=== PATIENT | female | born 2000 | race Caucasian/White ===

== ENCOUNTER 2021-11-13 08:13 | Observation (INO) ==
[2021-11-13] MEDS ORDERED: diphenhydrAMINE 50 MG/ML VIAL IV STA (08:38)
[2021-11-13] MEDS ORDERED: methylPREDNISolone 125 MG/2 ML VIAL IV STA (08:38)
[2021-11-13] MEDS ORDERED: SODIUM CHLORIDE 0.9% 1000ML 1,000 ML IV SCH (08:45)
[2021-11-13 09:32] LABS: Hematocrit (blood only) 40.1 % (37-47); Hemoglobin 14.1 g/dL (12.0-16.0); Mean Corpuscular Hemoglobin 29.4 pg (25-34); Mean Corpuscular Hgb Conc 35.2 g/dL (32-36); Mean Corpuscular Volume 83.5 fL (80-100); Platelet Count 246 K/uL (130-400); RDW Coefficient of Variation 12.1 % (11.5-14.5); RDW Standard Deviation 36.6 fL (36.4-46.3); White Blood Count 17.51 K/uL (4.8-10.8)
--- NOTE | 2021-11-13 09:41 | XRay Report ---
XR chest 1V portable HISTORY: 21 years-old Female atypical rash COMPARISON: None TECHNIQUE: Portable AP view of the chest FINDINGS: The cardiomediastinal and hilar silhouettes are within normal limits. No pneumothorax, pleural effusi on, airspace consolidation or overt pulmonary edema. The bones of the chest appear grossly intact. IMPRESSION: No acute process. ACT 112: Negative or not required by law. The above report was generated using voice recognition software. It may contain grammatical, syntax o r spelling errors. Electronically signed by: Uriah Floyd M.D. 11/13/2021 9:39 AM
[2021-11-13 09:44] LABS: Partial Thromboplastin Ratio 1.1; Partial Thromboplastin Time 29.8 Seconds (21.0-31.0); Prothrombin Time 10.3 Seconds (9.0-12.0)
[2021-11-13 09:52] LABS: Albumin Level 3.2 gm/dl (3.4-5.0); BUN Creatinine Ratio 12.3 (10-20); Calcium 8.5 mg/dl (8.5-10.1); Creatinine Clr Calc Pharmacy 109.2 ml/min; Eosinophils # (auto) 0.01 K/uL (0-0.5); Eosinophils % (auto) 0.1 %; Immature Granulocytes # (auto) 0.04 K/uL (0.00-0.02); Immature Granulocytes % (auto) 0.2 %; Lymphocytes # (auto) 0.57 K/uL (1.2-3.4); Lymphocytes % (auto) 3.3 %; Monocytes # (auto) 0.18 K/uL (0.11-0.59); Neutrophils # (auto) 16.71 K/uL (1.4-6.5); Neutrophils % (auto) 95.4 %; Potassium 3.2 mmol/L (3.5-5.1)
[2021-11-13 09:53] LABS: Pregnancy Test, Serum Negative (Negative)
[2021-11-13 09:55] LABS: Albumin Globulin Ratio 0.8 (0.9-2); Bilirubin,Total 0.5 mg/dl (0.2-1); Globulin 4.1 gm/dl (2.5-4.0); Total Protein 7.3 gm/dl (6.4-8.2)
--- NOTE | 2021-11-13 10:01 | Emergency Department Note ---
History of Present Illness General Chief complaint: Rash Stated complaint: RASH,SWELLING Time Seen by Provider: 11/13/21 08:32 History of Present Illness Maximum Pain Intensity: 4 This is a 21-year-old [facility] female presenting to the emergency department for evaluation of rash and swelling over the past few days. The patient does not have any childhood or adult immunizations. She does not believe that she has had a fever. Her rash includes the face, trunk, abdomen, and palms of the hands but not the soles of the feet. She is around young children, however none of them have been ill. The patient did go to Dr [facility] yesterday where she was given a dose of Solu-Medrol and oral steroids. The patient states her symptoms are worse today, primarily around her eyes and of her face. She does not take medication on a regular basis and considers herself usually healt hy. She does not believe that she is . Her discomfort is rated a 4/10 and she does not identify aggravating or alleviating factors. No known exposures to allergens that would explain her symptoms. Home Medications Medication Instructions Recorded Confirmed Type No Known Home Medications 11/13/21 11/13/21 History Allergies Allergy/AdvReac Type Severity Reaction Status Date / Time No Known Allergies Allergy Unverified 11/13/21 11:01 Past Med/Surg History Medical History No chronic diseases present Surgical History No significant past surgical history Social History Smoking Status: Never smoker Preferred Language: Kosovan Feels Safe at Home: Yes Review of Systems A total of 10 systems reviewed and were otherwise negative Physical Exam Vital Signs Vital Signs - 24 hr 11/13/21 08:28 11/13/21 09:33 11/13/21 09:40 Temperature 37.5 C Temperature Source Oral Pulse Rate 130 H 107 H 107 H Pulse Rate from SpO2 Sensor 107 H 108 H Pulse Rhythm Regular Pulse Strength Normal Respiratory Rate 20 15 18 Respiratory Effort / Characteristics Non-Labored Spontaneous Respiratory Depth Normal Respiratory Pattern Regular Blood Pressure 125/78 Blood Pressure Mean 93 Blood Pressure Position Sitting Pulse Oximetry 96 99 100 Oxygen Delivery Method Room Air Sepsis Recent Fever Within 48 Hours No Sepsis New/Unexplained Change in Mental Status No Sepsis Action Taken by Nursing No Action Required 11/13/21 09:50 11/13/21 10:01 11/13/21 10:02 Temperature Temperature Source Pulse Rate 102 H 100 H 110 H Pulse Rate from SpO2 Sensor 103 H 102 H 114 H Pulse Rhythm Pulse Strength Respiratory Rate 21 17 Respiratory Effort / Characteristics Respiratory Depth Respiratory Pattern Blood Pressure 117/69 Blood Pressure Mean 85 Blood Pressure Position Pulse Oximetry 99 100 98 Oxygen Delivery Method Sepsis Recent Fever Within 48 Hours Sepsis New/Unexplained Change in Mental Status Sepsis Action Taken by Nursing 11/13/21 10:10 11/13/21 10:20 11/13/21 10:30 Temperature Temperature Source Pulse Rate 103 H 113 H 107 H Pulse Rate from SpO2 Sensor 103 H 112 H 107 H Pulse Rhythm Pulse Strength Respiratory Rate 19 14 21 Respiratory Effort / Characteristics Respiratory Depth Respiratory Pattern Blood Pressure 116/62 Blood Pressure Mean 80 Blood Pressure Position Pulse Oximetry 97 98 96 Oxygen Delivery Method Sepsis Recent Fever Within 48 Hours Sepsis New/Unexplained Change in Mental Status Sepsis Action Taken by Nursing 11/13/21 10:40 11/13/21 10:50 11/13/21 11:00 Temperature Temperature Source Pulse Rate 109 H 112 H 112 H Pulse Rate from SpO2 Sensor 110 H 111 H 112 H Pulse Rhythm Pulse Strength Respiratory Rate 13 25 H 22 Respiratory Effort / Characteristics Respiratory Depth Respiratory Pattern Blood Pressure Blood Pressure Mean Blood Pressure Position Pulse Oximetry 96 95 96 Oxygen Delivery Method Sepsis Recent Fever Within 48 Hours Sepsis New/Unexplained Change in Mental Status Sepsis Action Taken by Nursing 11/13/21 11:10 11/13/21 11:20 11/13/21 11:30 Temperature Temperature Source Pulse Rate 98 H 108 H 105 H Pulse Rate from SpO2 Sensor 102 H 108 H 108 H Pulse Rhythm Pulse Strength Respiratory Rate 18 21 22 Respiratory Effort / Characteristics Respiratory Depth Respiratory Pattern Blood Pressure 124/72 Blood Pressure Mean 89 Blood Pressure Position Pulse Oximetry 96 95 98 Oxygen Delivery Method Sepsis Recent Fever Within 48 Hours Sepsis New/Unexplained Change in Mental Status Sepsis Action Taken by Nursing 11/13/21 11:40 11/13/21 11:50 11/13/21 12:00 Temperature Temperature Source Pulse Rate 115 H 114 H 112 H Pulse Rate from SpO2 Sensor 113 H 114 H 111 H Pulse Rhythm Pulse Strength Respiratory Rate 19 22 17 Respiratory Effort / Characteristics Respiratory Depth Respiratory Pattern Blood Pressure Blood Pressure Mean Blood Pressure Position Pulse Oximetry 97 97 97 Oxygen Delivery Method Sepsis Recent Fever Within 48 Hours Sepsis New/Unexplained Change in Mental Status Sepsis Action Taken by Nursing 11/13/21 12:10 11/13/21 12:20 11/13/21 12:30 Temperature Temperature Source Pulse Rate 100 H 110 H 107 H Pulse Rate from SpO2 Sensor 101 H 109 H 105 H Pulse Rhythm Pulse Strength Respiratory Rate 16 20 19 Respiratory Effort / Characteristics Respiratory Depth Respiratory Pattern Blood Pressure 119/68 Blood Pressure Mean 85 Blood Pressure Position Pulse Oximetry 96 95 97 Oxygen Delivery Method Sepsis Recent Fever Within 48 Hours Sepsis New/Unexplained Change in Mental Status Sepsis Action Taken by Nursing 11/13/21 12:40 11/13/21 12:50 11/13/21 13:00 Temperature Temperature Source Pulse Rate 104 H 107 H 97 H Pulse Rate from SpO2 Sensor 106 H 104 H 95 H Pulse Rhythm Pulse Strength Respiratory Rate 18 14 16 Respiratory Effort / Characteristics Respiratory Depth Respiratory Pattern Blood Pressure 106/68 Blood Pressure Mean 80 Blood Pressure Position Pulse Oximetry 96 97 98 Oxygen Delivery Method Sepsis Recent Fever Within 48 Hours Sepsis New/Unexplained Change in Mental Status Sepsis Action Taken by Nursing 11/13/21 13:10 11/13/21 13:20 Temperature Temperature Source Pulse Rate 105 H 110 H Pulse Rate from SpO2 Sensor 108 H 115 H Pulse Rhythm Pulse Strength Respiratory Rate 20 16 Respiratory Effort / Characteristics Respiratory Depth Respiratory Pattern Blood Pressure Blood Pressure Mean Blood Pressure Position Pulse Oximetry 97 97 Oxygen Delivery Method Sepsis Recent Fever Within 48 Hours Sepsis New/Unexplained Change in Mental Status Sepsis Action Taken by Nursing VITALS: Vitals are noted on the nurse's note and reviewed by myself. Vital signs stable. GENERAL: Well-developed, well-nourished, white female, who appears moderately uncomfortable on presentation. She is with diffuse rash. HEAD: Normocephalic atraumatic. MOUTH: Mucous membranes moist. Tonsils are not enlarged. Pharynx without erythema, blood, or exudate. Uvula midline. Airway patent. No distinct [place] spots or ulcerations. There may be some slight discoloration of the left side tongue. No distinct tenderness in the salivary gland region. NECK: Supple without nuchal rigidity. No lymphadenopathy. No thyromegaly. Cervical spine is nontender. HEART: Regular rate and rhythm without murmurs gallops or rubs. LUNGS: Clear to auscultation bilaterally without wheezes, rales or rhonchi. No retractions or accessory muscle use. ABDOMEN: Positive normal bowel sounds x 4. Soft, nontender, without masses or organomegaly. No guarding or rebound tenderness. MUSCULOSKELETAL: No muscle atrophy, erythema, or edema noted. Full range of motion in all extremities. No tenderness to palpation. Normal gait. Strength 5/5 throughout. NEURO: Patient was alert and oriented to person place and time. CN II through XII grossly intact. No focal neurological deficits. Deep tendon reflexes 2+ throughout. SKIN: The skin was with diffuse rash. The rash is with several different morphologies, some of which are annular with central clearing, some of which are more persistent and diffuse erythema. No distinct pustules or ulcerations. Palms of the hands are affected. There is swelling of the periorbital areas without distinct conjunctivitis. Course Administered Medications Discontinued Medications Diphenhydramine HCl (Diphenhydramine 50 Mg/Ml Vial) 50 mg IV NOW STA Stop: 11/13/21 08:39 Last Admin: 11/13/21 09:20 Dose: 50 mg Documented by: [id number] Sodium Chloride (Nss 1000ml) 1,000 mls @ 999 mls/hr IV .Q1H1M LATESHA Stop: 11/13/21 09:45 Last Infusion: 11/13/21 13:14 Dose: 0 mls/hr Documented by: [id number] Admin: 11/13/21 09:20 Dose: 999 mls/hr Documented by: [id number] Ceftriaxone Sodium (Rocephin) 2,000 mg in 70 mls @ 140 mls/hr IV NOW STA Stop: 11/13/21 11:05 Last Infusion: 11/13/21 13:14 Dose: 0 mls/hr Documented by: [id number] Admin: 11/13/21 10:57 Dose: 140 mls/hr Documented by: [id number] Methylprednisolone (Methylprednisolone 125 Mg/2 Ml Vial) 125 mg IV NOW STA Stop: 11/13/21 08:39 Last Admin: 11/13/21 09:20 Dose: 125 mg Documented by: [id number] Oseltamivir Phosphate (Oseltamivir Phosphate 75 Mg Cap) 75 mg PO NOW STA; P rotocol Stop: 11/13/21 13:22 Last Admin: 11/13/21 13:45 Dose: 75 mg Documented by: [id number] Medical Decision Making Differential Diagnosis Differential diagnosis: Etiologies such as allergic reaction, anaphylaxis, urticaria, angioedema, Juarez-Juan syndrome, toxic epidermal necrolysis, erythema multiforme, cellulitis, as well as others were entertained. Laboratory Data Result diagrams: 11/13/21 09:15 11/13/21 09:15 Lab Results 11/13/21 11/13/21 11/13/21 Range/Units 09:15 09:15 09:15 WBC 17.51 H (4.8-10.8) K/uL RBC 4.80 (4.2-5.4) M/uL Hgb 14.1 (12.0-16.0) g/dL Hct 40.1 (37-47) % MCV 83.5 (80-100) fL MCH 29.4 (25-34) pg MCHC 35.2 (32-36) g/dL RDW Std Deviation 36.6 (36.4-46.3) fL RDW Coeff of Nguyễn 12.1 (11.5-14.5) % Plt Count 246 (130-400) K/uL MPV 10.0 (7.4-10.4) fL Immature Gran % (Auto) 0.2 % Neut % (Auto) 95.4 % Lymph % (Auto) 3.3 % Nelson % (Auto) 1.0 % Eos % (Auto) 0.1 % Baso % (Auto) 0.0 % Neut # (Auto) 16.71 H (1.4-6.5) K/uL Lymph # (Auto) 0.57 L (1.2-3.4) K/uL Nelson # (Auto) 0.18 (0.11-0.59) K/uL Eos # (Auto) 0.01 (0-0.5) K/uL Baso # (Auto) 0.00 (0-0.2) K/uL Immature Gran # (Auto) 0.04 H (0.00-0.02) K/uL ESR (0-20) mm/hr PT (9.0-12.0) Seconds INR (0.9-1.1) APTT (21.0-31.0) Seconds PTT Ratio Sodium 134 L (136-145) mmol/L Potassium 3.2 L (3.5-5.1) mmol/L Chloride 104 (98-107) mmol/L Carbon Dioxide 25 (21-32) mmol/L Anion Gap 5.0 (3-11) BUN 10 (7-18) mg/dl Creatinine 0.79 (0.6-1.2) mg/dl Est Cr Clr Drug Dosing 109.2 ml/min Est GFR ( Amer) 124.0 ml/min Est GFR (Non-Af Amer) 107.0 ml/min BUN/Creatinine Ratio 12.3 (10-20) Glucose 160 H (70-99) mg/dl Lactate (0.4-2.0) mmol/L Calcium 8.5 (8.5-10.1) mg/dl Total Bilirubin 0.5 (0.2-1) mg/dl AST 22 (15-37) U/L ALT 51 (12-78) Alkaline Phosphatase 60 (45-117) U/L C-Reactive Protein 11.00 H (0-0.29) mg/dl Total Protein 7.3 (6.4-8.2) gm/dl Albumin 3.2 L (3.4-5.0) gm/dl Globulin 4.1 H (2.5-4.0) gm/dl Albumin/Globulin Ratio 0.8 L (0.9-2) Procalcitonin 0.18 (0-0.5) ng/ml HCG, Qual Negative (Negative) Adenovirus (PCR) (NotDetected) B. pertussis DNA (PCR) (NotDetected) B.parapertussis DNA PCR (NotDetected) Lyme Disease IgG Ab Negative (Negative) Lyme Disease IgM Ab Equivocal A (Negative) C. pneumoniae DNA (PCR) (NotDetected) Coronavirus OC43 (PCR) (NotDetected) Coronavirus HKU1 (PCR) (NotDetected) Coronavirus 229E (PCR) (NotDetected) SARS-CoV-2 (PCR) (NotDetected) Coronavirus NL63 (PCR) (NotDetected) Monoscreen Negative (Negative) Human Metapneumovir PCR (NotDetected) Influenza A (H3) PCR (NotDetected) Influenza Type B (PCR) (NotDetected) M. pneumoniae (PCR) (NotDetected) Parainfluenza 1 (PCR) (NotDetected) Parainfluenza 2 (PCR) (NotDetected) Parainfluenza 3 (PCR) (NotDetected) Parainfluenza 4 (PCR) (NotDetected) RSV (PCR) (NotDetected) Entero/Rhino (PCR) (NotDetected) 11/13/21 11/13/21 11/13/21 Range/Units 09:15 09:15 11:14 WBC (4.8-10.8) K/uL RBC (4.2-5.4) M/uL Hgb (12.0-16.0) g/dL Hct (37-47) % MCV (80-100) fL MCH (25-34) pg MCHC (32-36) g/dL RDW Std Deviation (36.4-46.3) fL RDW Coeff of Nguyễn (11.5-14.5) % Plt Count (130-400) K/uL MPV (7.4-10.4) fL Immature Gran % (Auto) % Neut % (Auto) % Lymph % (Auto) % Nelson % (Auto) % Eos % (Auto) % Baso % (Auto) % Neut # (Auto) (1.4-6.5) K/uL Lymph # (Auto) (1.2-3.4) K/uL Nelson # (Auto) (0.11-0.59) K/uL Eos # (Auto) (0-0.5) K/uL Baso # (Auto) (0-0.2) K/uL Immature Gran # (Auto) (0.00-0.02) K/uL ESR 17 (0-20) mm/hr PT 10.3 (9.0-12.0) Seconds INR 1.0 (0.9-1.1) APTT 29.8 (21.0-31.0) Seconds PTT Ratio 1.1 Sodium (136-145) mmol/L Potassium (3.5-5.1) mmol/L Chloride (98-107) mmol/L Carbon Dioxide (21-32) mmol/L Anion Gap (3-11) BUN (7-18) mg/dl Creatinine (0.6-1.2) mg/dl Est Cr Clr Drug Dosing ml/min Est GFR ( Amer) ml/min Est GFR (Non-Af Amer) ml/min BUN/Creatinine Ratio (10-20) Glucose (70-99) mg/dl Lactate 1.4 (0.4-2.0) mmol/L Calcium (8.5-10.1) mg/dl Total Bilirubin (0.2-1) mg/dl AST (15-37) U/L ALT (12-78) Alkaline Phosphatase (45-117) U/L C-Reactive Protein (0-0.29) mg/dl Total Protein (6.4-8.2) gm/dl Albumin (3.4-5.0) gm/dl Globulin (2.5-4.0) gm/dl Albumin/Globulin Ratio (0.9-2) Procalcitonin (0-0.5) ng/ml HCG, Qual (Negative) Adenovirus (PCR) (NotDetected) B. pertussis DNA (PCR) (NotDetected) B.parapertussis DNA PCR (NotDetected) Lyme Disease IgG Ab (Negative) Lyme Disease IgM Ab (Negative) C. pneumoniae DNA (PCR) (NotDetected) Coronavirus OC43 (PCR) (NotDetected) Coronavirus HKU1 (PCR) (NotDetected) Coronavirus 229E (PCR) (NotDetected) SARS-CoV-2 (PCR) (NotDetected) Coronavirus NL63 (PCR) (NotDetected) Monoscreen (Negative) Human Metapneumovir PCR (NotDetected) Influenza A (H3) PCR (NotDetected) Influenza Type B (PCR) (NotDetected) M. pneumoniae (PCR) (NotDetected) Parainfluenza 1 (PCR) (NotDetected) Parainfluenza 2 (PCR) (NotDetected) Parainfluenza 3 (PCR) (NotDetected) Parainfluenza 4 (PCR) (NotDetected) RSV (PCR) (NotDetected) Entero/Rhino (PCR) (NotDetected) 11/13/21 Range/Units 11:28 WBC (4.8-10.8) K/uL RBC (4.2-5.4) M/uL Hgb (12.0-16.0) g/dL Hct (37-47) % MCV (80-100) fL MCH (25-34) pg MCHC (32-36) g/dL RDW Std Deviation (36.4-46.3) fL RDW Coeff of Nguyễn (11.5-14.5) % Plt Count (130-400) K/uL MPV (7.4-10.4) fL Immature Gran % (Auto) % Neut % (Auto) % Lymph % (Auto) % Nelson % (Auto) % Eos % (Auto) % Baso % (Auto) % Neut # (Auto) (1.4-6.5) K/uL Lymph # (Auto) (1.2-3.4) K/uL Nelson # (Auto) (0.11-0.59) K/uL Eos # (Auto) (0-0.5) K/uL Baso # (Auto) (0-0.2) K/uL Immature Gran # (Auto) (0.00-0.02) K/uL ESR (0-20) mm/hr PT (9.0-12.0) Seconds INR (0.9-1.1) APTT (21.0-31.0) Seconds PTT Ratio Sodium (136-145) mmol/L Potassium (3.5-5.1) mmol/L Chloride (98-107) mmol/L Carbon Dioxide (21-32) mmol/L Anion Gap (3-11) BUN (7-18) mg/dl Creatinine (0.6-1.2) mg/dl Est Cr Clr Drug Dosing ml/min Est GFR ( Amer) ml/min Est GFR (Non-Af Amer) ml/min BUN/Creatinine Ratio (10-20) Glucose (70-99) mg/dl Lactate (0.4-2.0) mmol/L Calcium (8.5-10.1) mg/dl Total Bilirubin (0.2-1) mg/dl AST (15-37) U/L ALT (12-78) Alkaline Phosphatase (45-117) U/L C-Reactive Protein (0-0.29) mg/dl Total Protein (6.4-8.2) gm/dl Albumin (3.4-5.0) gm/dl Globulin (2.5-4.0) gm/dl Albumin/Globulin Ratio (0.9-2) Procalcitonin (0-0.5) ng/ml HCG, Qual (Negative) Adenovirus (PCR) Not Detected (NotDetected) B. pertussis DNA (PCR) Not Detected (NotDetected) B.parapertussis DNA PCR Not Detected (NotDetected) Lyme Disease IgG Ab (Negative) Lyme Disease IgM Ab (Negative) C. pneumoniae DNA (PCR) Not Detected (NotDetected) Coronavirus OC43 (PCR) Not Detected (NotDetected) Coronavirus HKU1 (PCR) Not Detected (NotDetected) Coronavirus 229E (PCR) Not Detected (NotDetected) SARS-CoV-2 (PCR) Not Detected (NotDetected) Coronavirus NL63 (PCR) Not Detected (NotDetected) Monoscreen (Negative) Human Metapneumovir PCR Not Detected (NotDetected) Influenza A (H3) PCR DETECTED A* (NotDetected) Influenza Type B (PCR) Not Detected (NotDetected) M. pneumoniae (PCR) Not Detected (NotDetected) Parainfluenza 1 (PCR) Not Detected (NotDetected) Parainfluenza 2 (PCR) Not Detected (NotDetected) Parainfluenza 3 (PCR) Not Detected (NotDetected) Parainfluenza 4 (PCR) Not Detected (NotDetected) RSV (PCR) Not Detected (NotDetected) Entero/Rhino (PCR) DETECTED A* (NotDetected) Imaging Data Radiologist's Impression: Chest X-Ray 11/13/21 08:59 XR chest 1V portable HISTORY: 21 years-old Female atypical rash COMPARISON: None TECHNIQUE: Portable AP view of the chest FINDINGS: The cardiomediastinal and hilar silhouettes are within normal limits. No pneumothorax, pleural effusion, airspace consolidation or overt pulmonary edema. The bones of the chest appear grossly intact. IMPRESSION: No acute process. ACT 112: Negative or not required by law. The above report was generated using voice recognition software. It may contain grammatical, syntax or spelling errors. Electronically signed by: Uriah Floyd M.D. 11/13/2021 9:[address] [facility] Narrative Physical exam and history were performed. Nursing notes, EMR, and Medication List were personally reviewed. Patient appears to have very atypical appearing rash throughout her body including the palms of the hands. She is afebrile here in the department but is with tachycardia. She is not immunized for any disease. IV access was established and labs were obtained. She was hydrated with normal saline and given IV Benadryl and IV Solu-Medrol. Because of her nonimmunization status extensive viral panels were ordered as well as blood cultures. An order was placed for continuous cardiac monitoring. The monitor shows a rate of 110 with sinus tachycardic rhythm. The patient's blood work is as above and was reviewed. She does have an elevated white blood cell count of 17.5. She does not have a significant anemia. Neutrophils are elevated at 16. Sed rate is normal at 17, however CRP is markedly elevated at 11.0. Transaminases are not diagnostic. She is not . Lyme testing was performed and is equivocal for IgM. Respiratory bio fire was performed and did return positive for both influenza A and rhinovirus. Covid is negative. Chest x-ray was reviewed by myself and radiology showing no acute process. Her lactic is normal and blood culture is pending. The case was discussed with my attending physician, Dr. Bettencourt, who also independently evaluated the patient. We did add additional measles, mumps, syphilis, and HIV testing. Many of these are send out labs, and the measles was completed on a downtime form in order to get a PCR test. The patient was reevaluated multiple times throughout the course of her stay. As her Lyme is equivocal she was given 2 g IV Rocephin. She was given Tamiflu for her influenza A. She did have improvement of the swelling and redness of the face after Benadryl and steroids, which I would estimate to be about 50% better. The remaining extremities and trunk are still quite involved however. She does not appear to be in anaphylaxis or with Harsh Juan's. She does not seem to have any evolving or changing elements of the rash. Overall she does not seem well for discharge home. The case was discussed with the on-call hospitalist team who agreed to evaluate her here in the ER. Please see their dictation for further patient course, plan, and disposition. The chart was completed utilizing [employer] Voice Recognition Software. Grammatical errors, random word insertions, pronoun errors, and incomplete sente nces are an occasional consequence of this system due to software limitations, ambient noise, and hardware issues. Any formal questions or concerns about the content, text, or information contained within the body of this dictation should be directly addressed to the provider for clarification. . Impression & Plan Rash and nonspecific skin eruption, Not immunized, Influenza A, Rhinovirus, Borderline Lyme serology Discharge Plan Visit Data Chief Complaint: Rash Stated Complaint: RASH,SWELLING ED Provider: Silver Bettencourt ED Midlevel Provider: Marcelo Valentin Discharge Problem: Rash and nonspecific skin eruption, Not immunized, Influenza A, Rhinovirus, Borderline Lyme serology Patient Disposition: Being Evaluated by Hospitalist Condition: Fair Forms Stand Alone Forms: My [employer] Prescriptions Prescriptions: No Action No Known Home Medications RF: 0 Referrals Referrals: PCP,NO [Primary Care Provider] -
[2021-11-13 10:02] LABS: Monotest Negative (Negative)
[2021-11-13 10:22] LABS: Lyme Ab IgG w/WB Rflx Negative (Negative)
[2021-11-13 10:33] LABS: Lyme Ab IgM w/WB Rflx Equivocal (Negative)
[2021-11-13] MEDS ORDERED: cefTRIAXone SODIUM 2,000 MG/70 ML BAG IV STA (10:36)
[2021-11-13 12:33] LABS: Adenovirus PCR Not Detected (NotDetected); Bordetella parapertussis PCR Not Detected (NotDetected); Bordetella pertussis PCR Not Detected (NotDetected); Chlamydia pneumoniae PCR Not Detected (NotDetected); Coronavirus 229E PCR Not Detected (NotDetected); Coronavirus CoV-2 (COVID19)PCR Not Detected (NotDetected); Coronavirus HKU1 PCR Not Detected (NotDetected); Coronavirus NL63 PCR Not Detected (NotDetected); Coronavirus OC43PCR Not Detected (NotDetected); Human Metapneumovirus PCR Not Detected (NotDetected); Influenza B PCR Not Detected (NotDetected); Mycoplasma pneumoniae PCR Not Detected (NotDetected); Parainfluenza Virus 1 PCR Not Detected (NotDetected); Parainfluenza Virus 2 PCR Not Detected (NotDetected); Parainfluenza Virus 3 PCR Not Detected (NotDetected); Parainfluenza Virus 4 PCR Not Detected (NotDetected); Respiratory Syncytial VirusPCR Not Detected (NotDetected)
[2021-11-13 13:01] LABS: Influenza A (H3) PCR DETECTED (NotDetected); Rhinovirus/Enterovirus PCR DETECTED (NotDetected)
[2021-11-13] MEDS ORDERED: OSELTAMIVIR PHOSPHATE 75 MG CAP PO STA (13:21)
--- NOTE | 2021-11-13 13:46 | Emergency Department Note ---
ED Visit Note The patient was seen and examined with nena. I agree with the history, physical and findings. Please see the note for disposition and details. .
--- NOTE | 2021-11-13 15:13 | History & Physical Report ---
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 Rash, joint pain, joint swelling Patient with diffuse pruritic maculopapular rash sparing the palms and soles, intermittently painful On admission, patient intermittently tachycardic, leukocytosis of 17.5 Symptoms improving after solumedrol administration, ceftriaxone given in ED CRP elevated to 11, ESR wnl, procal negative, LFT's wnl, INR wnl Differential broad but includes group A strep infection, viral exanthem, allergic reaction, other infections including measles given unvaccinated status Lyme IgM equivocal, other tickborne labs pending Additional pending labs: RPR, HIV, mumps, anti-streptolysin O Ab, measles Continue solumedrol 40mg IV q8h, diphenhydramine prn itching Trend CBC, CMP Airborne precautions Dysuria, urinary retention Ceftriaxone dose given in ED Urine culture pending, creatinine not elevated Patient without urinary retention at this time; continue to monitor Influenza A, echovirus Biofire on admission positive for influenza A and echovirus Tamiflu given in ED CXR unremarkable, maintaining adequate oxygenation on room air Unlikely related to presenting symptoms other than cough Continue to monitor Hypokalemia KCl 40mEq given Trend BMP FEN: regular diet Code status: full code DVT ppx: not indicated Held home meds: none Isolation: airborne PT/OT: not indicated Dispo: med/surg (2) Influenza A: (3) Rhinovirus: (4) Not immunized: History of Present Illness Primary Care Provider: NO PCP 21yo female without significant PMH presents with a two-day history of rash, cough, joint swelling, joint pain, and fatigue. Of note, patient is Confucianist and has never received a vaccine. Two days ago, patient noticed a red, itchy rash on her legs which spread to her entire body. Yesterday, the rash continued to worsen, and patient developed swelling of her hands, feet, and knees bilaterally, as well as burning pain in her hands and feet. Patient also notes some swelling of her lips yesterday, though this has resolved, and did not interfere with her breathing at that time. Yesterday, patient was seen at a local clinic, where she was given solumedrol and prednisone; patient's symptoms initially improved, but by midnight last night, patient's symptoms returned. This morning, patient's rash, pain, and fatigue worsened, prompting her to come to the hospital. Patient also notes a roughly three-month history of intermittent urinary retention and burning with urination. Patient notes she has never had this evaluated by a physician. Patient notes these symptoms have worsened slightly over the past week. Patient denies fever, chills, congestion, sore throat, chest pain, palpitations, SOB, abdominal pain, nausea, vomiting, constipation, diarrhea, numbness, tingling, or weakness. Patient denies sick contacts or recent travel. Patient says nobody in her family or community have had similar symptoms recently. Patient's family owns horses but patient does not come into direct contact with them. Patient denies exposure to any new foods, household product, or any other known new allergen. Patient denies exposure to other animals. Denies any known tick bite. Denies known allergies. Patient denies any family history of medical conditions. Patient denies alcohol, cannabis, and other recreational substance use. Patient denies any surgical history. Allergies Allergy/AdvReac Type Severity Reaction Status Date / Time No Known Allergies Allergy Unverified 11/13/21 11:01 Home Medications Medication Instructions Recorded Confirmed Type No Known Home Medications 11/13/21 11/13/21 History Past Med/Surg History Medical History No chronic diseases present Surgical History No significant past surgical history Social History Smoking Status: Never smoker Preferred Language: Amharic Feels Safe at Home: Yes Review of Systems Review of Systems: See HPI Physical Exam Physical Exam: Constitutional: well-appearing, no acute distress HEENT: no conjunctival injection, oropharynx unremarkable without erythema, exudate, or other lesions; dentition absent, upper and lower dentures noted CV: regular rhythm, no murmur appreciated, extremities well-perfused, no LE edema Resp: CTABL, no wheezes/rales/rhonchi appreciated, no increased work of breathing GI: soft, nondistended, nontender, BS normoactive MSK: no gross deformities appreciated Skin: diffuse maculopapular rash present on arms, legs, trunk, back, neck, face, and scalp (sparing palms and soles), edges of rash borders raised, areas of pallor between erythematous regions, rash does yessy, no exudate, ulcerations, or flaking skin noted Neuro: alert, oriented, no focal neurologic deficit appreciated Results & Data Results & Data ([facility]) Vital Signs (Past 12 Hours) Vital Signs Temp Pulse Resp BP Pulse Ox 11/13/21 13:20 110 H 16 97 11/13/21 13:10 105 H 20 97 11/13/21 13:00 97 H 16 106/68 98 11/13/21 12:50 107 H 14 97 11/13/21 12:40 104 H 18 96 11/13/21 12:30 107 H 19 119/68 97 11/13/21 12:20 110 H 20 95 11/13/21 12:10 100 H 16 96 11/13/21 12:00 112 H 17 97 11/13/21 11:50 114 H 22 97 11/13/21 11:40 115 H 19 97 11/13/21 11:30 105 H 22 124/72 98 11/13/21 11:20 108 H 21 95 11/13/21 11:10 98 H 18 96 11/13/21 11:00 112 H 22 96 11/13/21 10:50 112 H 25 H 95 11/13/21 10:40 109 H 13 96 11/13/21 10:30 107 H 21 116/62 96 11/13/21 10:20 113 H 14 98 11/13/21 10:10 103 H 19 97 11/13/21 10:02 110 H 17 117/69 98 11/13/21 10:01 100 H 100 11/13/21 09:50 102 H 21 99 11/13/21 09:40 107 H 18 100 11/13/21 09:33 107 H 15 99 11/13/21 08:28 37.5 C 130 H 20 125/78 96 Supervising Physician Co-Signing Physician Notes Attending attestation Pt seen and examined in concert with Dr. Marinelli. In agreement with the docume nted findings as noted in the resident documentation with any exceptions or additions as noted here. Diffuse rash x 3 days without apparent event or exposure at onset and with preceding urinary retention complaint x 3 weeks. Symptoms gradually improving following ED steroid dose and abx administration. no F/C, n/v/d/c/, vision/hearing changes, discharge, abd pain reported. Histories reviewed and verified as noted. On examination, S1/S2 nl RRR no MCG. CTAB. Abd NT/ND BS+ve, diffuse almost wheal/urticarial type rash with interspersed areas of pallor and some excoriation which is fading per patient and blanches on examination. ENT examination without apparent pathology though patient is edentulous with dentures top and bottom. Diffuse rash with accompanying joint pain and swelling - multiple potential causes with broad evaluation as noted. Continue methylprednisolone and monitor closely. Will likely require outpatient allergy testing as well. Dysuria/urinary retention x weeks - f/u UCx, continue ceftriaxone Influenza A - Tamiflu, airborne. Else see resident documentation as noted. Resident Activity Tracking Resident Involvement: Resident Care Provided Care Provided: Adult [facility]
[2021-11-13 15:56] LABS: Procalcitonin 0.18 ng/ml (0-0.5)
[2021-11-13] MEDS ORDERED: POTASSIUM CHLORIDE CRTAB 20 MEQ TABCR PO STA (18:36)
[2021-11-13] MEDS ORDERED: POLYETHYLENE (MIRALAX) 17 GM PACK PO PRN (20:11)
[2021-11-13] MEDS ORDERED: ALUMINUM/MAGNESIUM SUSP 30 ML UDC PO PRN (20:11)
[2021-11-13] MEDS ORDERED: MAGNESIUM HYDROXIDE SUSP 30 ML UDC PO PRN (20:11)
[2021-11-13] MEDS ORDERED: ONDANSETRON INJ 2 MG/ML 2 ML VIAL IV PRN (20:11)
[2021-11-13] MEDS ORDERED: ACETAMINOPHEN 325 MG TAB PO PRN (20:11)
[2021-11-13] MEDS: methylPREDNISolone 40 MG in SYRINGE 0 ML IV SCH (21:04)
[2021-11-13] MEDS ORDERED: POTASSIUM CHLORIDE 10 MEQ TABCR PO ONE (21:06)
[2021-11-13] MEDS: diphenhydrAMINE Capsule 25 MG CAP PO PRN (21:07)
[2021-11-13 22:12] LABS: Appearance Urine Clear (Clear); Bacteria Urine Automated Negative (Negative); Bilirubin Urine Negative (Negative); Blood Urine Negative (Negative); Cast Urine Automated 0 /lpf (0-5); Color Urine Yellow; Epithelial Cell Urine Auto >30 /lpf (0-5); Glucose Urine UA Negative (Negative); Ketones Urine Negative (Negative); Leukocyte Esterase Urine 3+ (Negative); Nitrite Urine Negative (Negative); Protein Urine Negative (Negative); RBC Urine Automated 0-4 /hpf (0-4); Urobilinogen Urine Negative (Negative); WBC Urine Automated >30 /hpf (0-5); pH Urine 7.5 (4.5-7.5)
[2021-11-14] MEDS: guaiFENesin/DEXTROM SYRUP 100MG/10MG 5ML UDC PO PRN ×2 (02:25→10:54)
[2021-11-14] MEDS: methylPREDNISolone 40 MG in SYRINGE 0 ML IV SCH ×2 (04:17→11:48)
[2021-11-14 06:24] LABS: Eosinophils # (auto) 0.01 K/uL (0-0.5); Eosinophils % (auto) 0.1 %; Hematocrit (blood only) 33.6 % (37-47); Hemoglobin 11.8 g/dL (12.0-16.0); Immature Granulocytes # (auto) 0.04 K/uL (0.00-0.02); Immature Granulocytes % (auto) 0.2 %; Lymphocytes % (auto) 4.8 %; Mean Corpuscular Hemoglobin 29.9 pg (25-34); Mean Corpuscular Hgb Conc 35.1 g/dL (32-36); Mean Corpuscular Volume 85.1 fL (80-100); Mean Platelet Volume 10.1 fL (7.4-10.4); Monocytes # (auto) 0.32 K/uL (0.11-0.59); Monocytes % (auto) 1.9 %; Neutrophils # (auto) 15.33 K/uL (1.4-6.5); Platelet Count 245 K/uL (130-400); RDW Coefficient of Variation 12.1 % (11.5-14.5); RDW Standard Deviation 38.3 fL (36.4-46.3); Red Blood Count 3.95 M/uL (4.2-5.4)
[2021-11-14 06:57] LABS: Alanine Aminotransferase 40 (12-78); Albumin Level 2.8 gm/dl (3.4-5.0); Aspartate Aminotransferase 14 U/L (15-37); BUN Creatinine Ratio 23.6 (10-20); Blood Urea Nitrogen 13 mg/dl (7-18); Calcium 8.5 mg/dl (8.5-10.1); Carbon Dioxide 27 mmol/L (21-32); Chloride 107 mmol/L (98-107); Creatinine Clr Calc Pharmacy 162.3 ml/min; Est GFR (African American) > 150.0 ml/min; Est GFR (Non-African American) 135.7 ml/min; Glucose 138 mg/dl (70-99); Potassium 3.9 mmol/L (3.5-5.1); Sodium 137 mmol/L (136-145)
--- NOTE | 2021-11-14 07:06 | Hospitalist Progress Note ---
Date of Service November 14, 2021 Assessment & Plan Admission and Anticipated Discharge Date Admission Date: November 13, 2021 Results & Data Results & Data ([facility]) Vital Signs (Past 12 Hours) Vital Signs Temp Pulse Resp BP Pulse Ox 11/13/21 23:13 37.6 C H 87 17 118/75 96 11/13/21 19:22 100 H 16 121/73 98
[2021-11-14 07:07] LABS: Albumin Globulin Ratio 0.7 (0.9-2); Alkaline Phosphatase 53 U/L (45-117); Bilirubin,Total 0.6 mg/dl (0.2-1); Globulin 3.8 gm/dl (2.5-4.0); Total Protein 6.6 gm/dl (6.4-8.2)
[2021-11-14] MEDS ORDERED: cefTRIAXone SODIUM 1,000 MG in DEXTROSE 5% 50 ML IV SCH (08:00)
[2021-11-14] MEDS: diphenhydrAMINE Capsule 25 MG CAP PO PRN (12:33)
--- NOTE | 2021-11-14 12:46 | Discharge Summary ---
Date of Service November 14, 2021 Admission HPI Per Admitting Provider 21yo female without significant PMH presents with a two-day history of rash, cough, joint swelling, joint pain, and fatigue. Of note, patient is [place] and has never received a vaccine. Two days ago, patient noticed a red, itchy rash on her legs which spread to her entire body. Yesterday, the rash continued to worsen, and patient developed swelling of her hands, feet, and knees bilaterally, as well as burning pain in her hands and feet. Patient also notes some swelling of her lips yesterday, though this has resolved, and did not interfere with her breathing at that time. Yesterday, patient was seen at a local clinic, where she was given solumedrol and prednisone; patient's symptoms initially improved, but by midnight last night, patient's symptoms returned. This morning, patient's rash, pain, and fatigue worsened, prompting her to come to the hospital. Patient also notes a roughly three-month history of intermittent urinary retention and burning with urination. Patient notes she has never had this eval uated by a physician. Patient notes these symptoms have worsened slightly over the past week. Patient denies fever, chills, congestion, sore throat, chest pain, palpitations, SOB, abdominal pain, nausea, vomiting, constipation, diarrhea, numbness, tingling, or weakness. Patient denies sick contacts or recent travel. Patient says nobody in her family or community have had similar symptoms recently. Patient's family owns horses but patient does not come into direct contact with them. Patient denies exposure to any new foods, household product, or any other known new allergen. Patient denies exposure to other animals. Denies any known tick bite. Denies known allergies. Patient denies any family history of medical conditions. Patient denies alcohol, cannabis, and other recreational substance use. Patient denies any surgical history. Admission Exam Per Admitting Provider Constitutional: well-appearing, no acute distress HEENT: no conjunctival injection, oropharynx unremarkable without erythema, exudate, or other lesions; dentition absent, upper and lower dentures noted CV: regular rhythm, no murmur appreciated, extremities well-perfused, no LE edema Resp: CTABL, no wheezes/rales/rhonchi appreciated, no increased work of breathing GI: soft, nondistended, nontender, BS normoactive MSK: no gross deformities appreciated Skin: diffuse maculopapular rash present on arms, legs, trunk, back, neck, face, and scalp (sparing palms and soles), edges of rash borders raised, areas of pallor between erythematous regions, rash does yessy, no exudate, ulcerations, or flaking skin noted Neuro: alert, oriented, no focal neurologic deficit appreciated Principal Diagnosis Rash, influenza A Discharge Exam Constitutional: well-appearing, no acute distress HEENT: no conjunctival injection, oropharynx unremarkable, edentulous with upper and lower dentures CV: regular rhythm, no murmur appreciated, extremities well-perfused, no LE edema Resp: CTABL, no wheezes/rales/rhonchi appreciated, no increased work of breathing Skin: faint maculopapular rash present on upper legs, trunk, and back; rash largely resolved on lower legs, arms, face Neuro: alert, oriented, no focal neurologic deficit appreciated Discharge Data Allergies Allergy/AdvReac Type Severity Reaction Status Date / Time No Known Allergies Allergy Unverified 11/13/21 11:01 Consultations 11/13/21 13:44 ED Decision to Admit Stat Hospital Course (1) Rash and nonspecific skin eruption: Rash, joint pain, joint swelling On admission, patient was intermittently tachycardic and had a leukocytosis of 17.5. Symptoms improved with IV steroids and one dose of ceftriaxone. CRP elevated to 11, but ESR, procal, LFTs, and INR were normal. Given patient's unvaccinated status, an aggressive infectious workup was performed, which was notable only for influenza A and entero/rhinovirus. On hospital day two, patient's symptoms had nearly completely resolved, and patient was discharged with a five-day course of prednisone and three-day course of tamiflu. Given the rash was pruritic and sudden-onset, an allergic reaction was felt to be most likely. Outpatient follow-up was recommended with consideration of allergy testing. Patient was prescribed two epinephrine autoinjectors upon discharge. Labs which resulted positive: Influenza A Entero/rhinovirus PCR Labs which resulted equivocal: Lyme IgM Labs which resulted negative: Adenovirus Pertussis Lyme IgG C. pneumonia Coronavirus (including covid-19) Monoscreen Influenza B Parainfluenza Labs still pending upon discharge: RPR Lyme bands C. trachomatis HIV, mumps panel M. gonorrhea Anti-streptolysin O T. vaginalis Measles Dysuria, urinary retention Patient was given one dose of ceftriaxone in the ED. Patient did not have urinary retention or burning during this admission. Urinalysis had 3+ leuk esterase and yeast but was likely contaminated. Urine culture was pending at the time of discharge. Outpatient follow-up was recommended, which patient says she will arrange with a local [facility] doctor. Influenza A, echovirus Biofire on admission was positive for influenza A and echovirus. CXR was unremarkable and patient maintained adequate oxygen saturation on room air. These viruses were felt unlikely to be contributory to patient's clinical picture. Nevertheless, tamiflu was given, and was continued upon discharge to complete a five-day course. Total Time Total Time Spent Total Time Spent (In Minutes): see attending documentation Discharge Plan Discharge Items Patient Disposition: Home - Self-Care Reason For Visit: RASH,SWELLING Discharge Diagnosis: Rash, influenza Activity: Resume your previous activity Non-emergency contact: Primary Care Provider Call non-emergency contact if: you have any medication questions and your symptoms worsen Follow-up/Referrals: Lupillo Buchanan MD [Physician] - (allergy testing Patient states, "I will see my own physician after I am discharged, I will take care of it." ) PCP,NO [Primary Care Provider] - (ALEVISM; she will see her own physician. ) Diet: Regular Addtl Attending Provider Instructions: You were admitted to the hospital for rash. You were treated with steroids, and your symptoms have improved. We feel it is safe for you to continue your treatment from home. A discharge summary will be sent to your primary care physician to ensure continuity of care. Please bring this discharge summary with you to your next office appointment so that your provider can review it at that time. Follow-up appointments: Make a follow-up appointment with a local doctor in the next week. It is very important that you follow up with them shortly after discharge from the hospital. Once you have established care with a doctor, you can ask them to obtain your medical records from [facility]. Keep all your follow-up appointments as already scheduled. If you cannot make an appointment, notify your provider. Medications: Your medication list has been reviewed and reconciled upon discharge to ensure accuracy and continuity of care. An updated list of all your medications is included with your hospital discharge paperwork. Please review this list closely, and make note of any changes. * We sent a new medication called prednisone to your pharmacy. Take prednisone (50mg) one tablet daily for 5 days. * We sent a new medication called oseltamivir to your pharmacy. Take oseltamivir (75mg) one tablet twice daily for 3 more days. * We sent an epinephrine autoinjector (EpiPen) to your pharmacy. This is to be used if you suddenly develop a rash or difficulty breathing. This device can reverse symptoms temporarily. Please carefully read the instructions included with the epinephrine autoinjector. If you use your epinephrine autoinjector, you must immediately go to a hospital, because the effect it has is temporary. Please keep your epinephrine autoinjector somewhere where you can quickly find it if necessary. Take your medications as instructed; do not skip a dose of your medicines. Make sure all of your doctors know every medicine you are taking (including [id number] medicines, vitamins, and supplements). Call your primary care provider before taking any new medicines (including pnkw-[id number] medicines, vitamins, and supplements), because some of these may interact with your current medications, or may make your symptoms worse. Tell your primary care provider if you cannot afford your medications. CONTACT YOUR PRIMARY CARE PROVIDER if you experience any of the following: Worsening rash Fever Difficulty following your treatment plan, or difficulty taking medications CALL 911 OR GO TO THE EMERGENCY DEPARTMENT if you experience any of the following: Sudden, severe abdominal pain or nausea/vomiting Severe chest pain, or chest pain that radiates (moves) to your jaw or arm Sudden, severe shortness of breath or difficulty breathing Thank you for allowing us to participate in your care. Pending Studies at Discharge: Yes Studies:: blood cultures, viral panels Stand-Alone Forms: My [facility] Medications and DC Order Prescriptions: New epinephrine [EpiPen 2-Javier] 0.3 mg/0.3 mL auto-injector 0.3 mg IM Q3H PRN (Reason: anaphylaxis) Qty: 2 RF: 2 prednisone 50 mg tablet 50 mg PO DAILY 5 Days Qty: 5 RF: 0 oseltamivir [Tamiflu] 75 mg capsule 75 mg PO BID Qty: 7 RF: 0 Discharge Orders: Discharge Order (Routine); Ordered 11/14/21 Ordered By: Kilo Marinelli Admission Data Admit Date/Time: 11/13/21 14:56 Attending Provider: Henrry Banda Provider: Kilo Marinelli Primary Care Provider: PCP,NO Other Providers: Danny Dunn Other Interventions: Discharge Summary Assessment (RN) Last Done: 11/14/21 12:00 Supervising Physician Co-Signing Physician Notes Attending attestation Pt seen and examined in concert with Dr. Marinelli. In agreement with the documented findings as noted in the resident documentation with any exceptions or additions as noted here. Significant improvement in subjective rash and pruritis following IV steroids overnight. On examination, S1/S2 nl RRR no MCG. CTAB. Abd NT/ND BS+ve. Improved diffuse wheal/urticarial rash with increased excoriations. Rash, likely urticarial - send out labs pending, Cx NGTD with low suspicion of active infection - complete course of steroids. EpiPen 2/2 previous lip swelling and unknown causeative factor. Strongly encourage outpatient f/u with allergy/immunology, referral provided. Strongly encourage continuity follow up. Gradual reintroduction of exposures reviewed. Else see resident documentation as noted. Total attending time spent on this patient's case on the day of discharge: 35 minutes. Resident Activity Tracking Resident Involvement: Resident Care Provided Care Provided: Adult Hospital Medicine
[2021-11-14] MEDS ORDERED: OSELTAMIVIR PHOSPHATE 75 MG CAP PO SCH (21:00)
[2021-11-15 23:53] LABS: Rapid Plasma Reagin Nonreactive (Nonreactive)
[2021-11-17 01:51] LABS: 18KDIGG Band NON-REACTIVE; 23KDIGG Band NON-REACTIVE; 23KDIGM Band NON-REACTIVE; 28KDIGG Band NON-REACTIVE; 30KDIGG Band NON-REACTIVE; 39KDIGG Band NON-REACTIVE; 39KDIGM Band NON-REACTIVE; 41KDIGG Band NON-REACTIVE; 41KDIGM Band REACTIVE; 45KDIGG Band NON-REACTIVE; 58KDIGG Band NON-REACTIVE; 66KDIGG Band NON-REACTIVE; 93KDIGG Band NON-REACTIVE; Lyme Antibodies, WB IgG NEGATIVE (NEGATIVE); Lyme Antibodies, WB IgM NEGATIVE (NEGATIVE)
== END 2021-11-14 13:00 | disposition home or self-care (01) ==
LOC: ED 08:13 → EDINP 08:13 → 3W 20:00